=== PATIENT | female | born 1990 | race Caucasian/White ===

== ENCOUNTER 2022-11-23 15:54 | Emergency (ER) | payer MEDICAID ==
[~2022-11-23] VITALS: Ht 177.8 cm; Wt 77.1 kg
[2022-11-23 16:00] VITALS: BP 139/65
[2022-11-23] MEDS ORDERED: ACET-10509 PO (17:43)
[2022-11-23] MEDS ORDERED: AMOX875T3 PO (17:43)
[2022-11-23] MEDS ORDERED: IBUP-1842 PO (17:43)
== END 2022-11-23 18:02 | disposition home or self-care (01) ==
LOC: MED 15:54
DX: H66.91 Otitis media, unspecified, right ear (principal); J02.9 Acute pharyngitis, unspecified; Z88.2 Allergy status to sulfonamides; Z88.5 Allergy status to narcotic agent; Z88.8 Allergy status to other drugs, medicaments and biological substances
CPT/HCPCS: 99283